=== PATIENT | female | born 1985 | race Caucasian/White ===

== ENCOUNTER 2016-10-02 21:25 | Emergency (ER) | payer OTHER ==
[~2016-10-02] VITALS: Ht 165.1 cm; Wt 70.0 kg
[2016-10-02] MEDS ORDERED: ONDANSETRON ODT 4 MG ONE (22:12)
[2016-10-02 22:13] VITALS: BP 118/81
[2016-10-02 22:19] LABS: HEMATOCRIT 38.8 % (34.6-47.8); HEMOGLOBIN 12.9 g/dL (11.7-16.4); WHITE BLOOD COUNT 5.8 x10^3/uL (3.4-10)
[2016-10-02] MEDS ORDERED: SODIUM CHLORIDE 0.9% 1,000ML IVBOLUS ONE (22:30)
[2016-10-02] MEDS ORDERED: SODIUM CHLORIDE FLUSH 10ML SYR IVF ONE (22:30)
[2016-10-02] MEDS ORDERED: PROMETHAZINE 25 MG/ML, 1ML IM ONE (22:30)
[2016-10-02 22:34] LABS: BLOOD UREA NITROGEN 13 mg/dL (7-18)
[2016-10-02] MEDS ORDERED: PROMETHAZINE 25 MG/ML, 1ML ONE (22:53)
== END 2016-10-03 00:30 | disposition home or self-care (01) ==
LOC: ED 23:59
DX: R55 Syncope and collapse (principal); R11.0 Nausea
CPT/HCPCS: 36415; 80048; 82040; 84703; 85025; 93005; 96360; 96361; 96372; 99285; J2550; J7030